=== PATIENT | female | born 1965 | race African-American/Black ===

== ENCOUNTER 2020-09-19 21:12 | Emergency (ER) | payer OTHER | END 2020-09-20 02:16 | disposition other institution (70) | LOC: FER 21:12 | DX: S80.02XA Contusion of left knee, initial encounter (principal); M79.652 Pain in left thigh; I10 Essential (primary) hypertension; F17.210 Nicotine dependence, cigarettes, uncomplicated; V29.50XA Motorcycle passenger injured in collision with unspecified motor vehicles in traffic accident, initial encounter; Y92.410 Unspecified street and highway as the place of occurrence of the external cause | CPT/HCPCS: 73560; 73700; 93005; J2270; J2405; J3010 ==